=== PATIENT | female | born 1965 | race Caucasian/White ===

== ENCOUNTER 2022-07-03 13:04 | Emergency (ER) | payer OTHER, SELFPAY ==
[2022-07-03 13:16] VITALS: BP 172/108; PULSE 70; RESP 16; TEMP 36.6; O2SAT 100
--- NOTE | 2022-07-03 13:32 | ECG_ITS ---
Measurements Intervals [place] Rate: 62 P: 13 [place]: 270 QRS: 23 QRSD: 98 T: 29 QT: 434 QTc: 441 Interpretive Statements SINUS RHYTHM WITH FIRST DEGREE AV BLOCK CANNOT RULE OUT SEPTAL INFARCT, AGE INDETERMINATE ABNORMAL ECG NO PREVIOUS ECG AVAILABLE FOR COMPARISON Electronically Signed On 07-03-2022 14:25:31 CDT by Dhiraj Chan D.O.
--- NOTE | 2022-07-03 14:10 | ED.GENADULT ---
HPI - General Adult General Chief complaint: Shortness of Breath/Dyspnea Stated complaint: high blood pressure,shortness of breath,heart palp Time Seen by Provider: 07/03/22 14:10 Source: patient, RN notes reviewed and old records reviewed Mode of arrival: ambulatory Limitations: no limitations History of Present Illness HPI narrative: 57-year-old female presents to the [facility] with complaints of heart palpitations over the last several weeks. Started this morning with left-sided chest pain, shortness of breath as well as the pain radiating into her left side of her neck. chest pain started approximately 8:00 a.m. this morning as well as the radiation and shortness of breath. patient on arrival has blood pressure that is elevated. Patient reports that she called her primary care provider to try to get an appointment was told with her symptoms to go the ER. Patient arrives to the urgent care. Is asking for other ways to have a cardiac evaluation without going to the emergency room. Is willing to sign out against medical advice, does not want to go to the ER at this time Related Data Home Medications Medication Instructions Recorded Confirmed No Home Medications 07/03/22 07/03/22 Allergies Allergy/AdvReac Type Severity Reaction Status Date / Time No Known Allergies Allergy Verified 07/03/22 13:10 Review of Systems Review of Systems: All systems reviewed & are unremarkable except as noted in HPI and below Constitutional: Constitutional: Reports no additional constitutional complaints Eyes: Eyes: Reports no additional eye complaints ENT: Reports system reviewed and no additional complaints, except as documented Cardiovascular: Cardiovascular: Reports as per HPI, Reports chest pain, Reports irregular heart rhythm, Denies leg edema, Reports radiating jaw, neck or arm pain and Reports dyspnea Respiratory: Respiratory: Reports no additional respiratory complaints, Denies chest congestion, Denies cough and Denies dyspnea Gastrointestinal: Gastrointestinal: Reports no additional gastrointestinal complaints, Denies abdominal pain, Denies nausea and Denies vomiting Musculoskeletal: Musculoskeletal: Reports no additional musculoskeletal complaints Integumentary/Breasts: Skin/Breast: Reports system reviewed and no additional complaints, except as docu Neurologic: Reports system reviewed and no additional complaints, except as documented Psychiatric: Psychiatric: Reports no additional psychiatric complaints Allergic/Immunologic: Allergic/Immunologic: Reports no additional allergic/immunologic complaints [facility] Family History Family History Father Hypertension Heart disease Grandparent Heart disease Social History Social History Smoking status: Never smoker Alcohol intake: never Substance use: never Substance use type: does not use Comments At the time of my signature, I reviewed and agree with the nursing past medical, surgical, social, and family history. There is no relevant family history pertinent to the patient complaint. Exam Const: General: cooperative, healthy appearing, comfortable, no acute distress, well developed, alert and well nourished Nutritional Appearance: well nourished Orientation/consciousness: patient oriented x3 Limitations: no limitations HENMT: Head: normal to inspection Ears: hearing grossly normal bilaterally and external ears normal Face/Nose/Sinus: Normal external nose present, Normal nares present, Normal nasal mucous membranes and turbinates present and normal facial exam Face and sinus: normal facial exam Eyes: General: appearance normal, both eyes and all related structures Alignment and Position: alignment normal Periorbital: periorbital findings normal Pupils: Equal, round and reactive pupils present EOM: EOMs intact bilaterally Neck: Neck: normal vi
== END 2022-07-03 14:19 | disposition left against medical advice (07) ==
PROVIDERS: Emergency Provider Nurse Practitioner
DX: R07.9 Chest pain, unspecified (principal); R00.2 Palpitations; R03.0 Elevated blood-pressure reading, without diagnosis of hypertension
CPT/HCPCS: 93005; 99213; G0463

== ENCOUNTER 2022-07-03 14:55 | Emergency (ER) | payer OTHER, SELFPAY ==
[2022-07-03] VITALS (10 sets, daily range): BP systolic 154–190; BP diastolic 87–120; PULSE 66–80; RESP 13–20; TEMP 36.4; O2SAT 97–100
--- NOTE | ~2022-07-03 | CT_ITS ---
EXAMINATION: CT brain wo con DATE: 07/03/2022 20:07 INDICATION: elevated BP, headache . TECHNIQUE: Computed tomography (CT) of the head was performed without intravenous contrast. The mA wa s adjusted according to patient size. Iterative reconstruction technique was employed. The dose-lengt h product was 605.33 mGy-cm. COMPARISON: None. FINDINGS: No acute intracranial hemorrhage or extra-axial fluid collection. No hydrocephalus, mass, or herniation. No acute ischemic infarct. Unremarkable dural venous sinus attenuation. No acute osseous abnormality. The aerated spaces are clear. IMPRESSION: No acute intracranial process. Reviewed, dictated and finalized at location K.
--- NOTE | ~2022-07-03 | XR_ITS ---
EXAMINATION: XR chest 2V 07/03/2022 15:23 INDICATION: Chest pain PROCEDURE: 2 view chest COMPARISON: No prior studies for comparison. FINDINGS: The lungs are clear. The cardiomediastinal silhouette is within normal limits. There are no pleural effusions. There is no pneumothorax suspected. IMPRESSION: 1: NO ACUTE CARDIOPULMONARY DISEASE. Reviewed, dictated and finalized at location L.
--- NOTE | ~2022-07-03 | CT_ITS ---
EXAMINATION: CTA chest PE protocol DATE: 07/03/2022 23:57 INDICATION: Chest pain. TECHNIQUE: Computed tomography angiography (CTA) of the chest was performed with 100 mL Omnipaque-350 intravenous contrast timed to evaluate the pulmonary arteries. Coronal maximum intensity projection 3D-reconstructions were created by the technologist. Automated exposure control and iterative reconst ruction technique were employed. The dose-length product was 331.96 mGy-cm. COMPARISON: None. FINDINGS: The lungs demonstrate mild atelectasis. No pleural effusion. There are nodules in the thyro id measuring up to 11 mm, likely not clinically significant. The heart size is normal. No pericardial effusion. There is no pulmonary embolus. There are changes of cholecystectomy. There is severe thora cic spondylosis. IMPRESSION: 1. No pulmonary embolus. Reviewed, dictated and finalized at location A. IMPRESSION: 1. No pulmonary embolus.
--- NOTE | 2022-07-03 14:57 | ECG_ITS ---
Measurements Intervals [place] Rate: 66 P: 19 [place]: 228 QRS: 22 QRSD: 93 T: 42 QT: 419 QTc: 439 Interpretive Statements SINUS RHYTHM WITH FIRST DEGREE AV BLOCK CANNOT RULE OUT SEPTAL INFARCT, AGE INDETERMINATE BASELINE ARTIFACT- I, III, AVL ABNORMAL ECG COMPARED TO ECG 07/03/2022 13:27:34 NO SIGNIFICANT CHANGES Electronically Signed On 07-03-2022 15:25:12 CDT by Dhiraj Chan D.O.
[2022-07-03 15:19] LABS: Basophils Absolute Auto 0.1 K/mm3 (0.0-0.1); Basophils Percent Auto 1.8 % (0.2-1.2); Eosinophils Absolute Auto 0.3 K/mm3 (0-0.3); Eosinophils Percent Auto 5.5 % (0-4.4); Hematocrit 42.2 % (37.0-47.0); Hemoglobin 13.8 g/dL (12.0-15.0); Immature Granulocyte Absolute 0.01 K/mm3 (0.00-0.031); Immature Granulocyte Percent A 0.2 % (0-0.5); Lymphocytes Absolute Auto 1.95 K/mm3 (0.9-3.2); Lymphocytes Percent Auto 38.1 % (18.3-44.2); Mean Corpuscular HGB Conc 32.7 g/dl (32-36); Mean Corpuscular Hemoglobin 30.1 pg (26-34); Mean Corpuscular Volume 92.1 fl (80-100); Mean Platelet Volume 8.9 fl (7.4-10.4); Monocytes Absolute Auto 0.4 K/mm3 (0.1-0.6); Monocytes Percent Auto 8.6 % (2.6-8.5); Neutrophils Absolute Auto 2.4 K/mm3 (1.3-6.7); Neutrophils Percent Auto 45.8 % (45.5-73.1); Platelet Count Result 250 k/mm3 (150-375); Red Blood Count 4.58 M/mm3 (4.2-5.4); Red Cell Distribution Width 13.6 % (11.5-14.5); White Blood Count 5.1 K/mm3 (4.5-10.0)
[2022-07-03 15:29] LABS: Alanine Aminotransferase 32 U/L (6-35); Albumin Level 4.5 g/dL (3.5-5.1); Alkaline Phosphatase 102 U/L (38-126); Anion Gap 7 mmol/L (8-16); Aspartate Amino Transferase 32 U/L (14-36); Bilirubin,Total 0.7 mg/dL (0.2-1.3); Blood Urea Nitrogen 19 mg/dL (7-17); Calcium 9.1 mg/dL (8.4-10.2); Carbon Dioxide 31 mmol/L (22-30); Chloride 101 mmol/L (98-107); Estimated Glomerular Filt Rate > 60; Glucose 114 mg/dL (65-110); INR 0.9; Lipase 110 U/L (23-300); Potassium 3.8 mmol/L (3.4-5.0); Prothrombin Time 12.1 Seconds (11.1-14.7); Sodium 139 mmol/L (137-145)
[2022-07-03 15:30] LABS: Partial Thromboplastin Time 26.7 SECONDS (22.3-36.8)
[2022-07-03 15:40] LABS: Troponin I < 0.012 ng/mL (0.000-0.034)
--- NOTE | 2022-07-03 19:10 | ED.CHESTPAIN ---
HPI - Chest Pain General Chief Complaint: Chest Pain Stated Complaint: chest pressure Time Seen by Provider: 07/03/22 19:06 Source: patient Mode of arrival: ambulatory Limitations: no limitations History of Present Illness HPI narrative: Patient is a 57-year-old female with a history of remote hypertension presenting to the emergency department for evaluation of elevated blood pressure, intermittent left-sided chest pain, headache. Patient reports that she has intermittently been experiencing a fluttering sensation in her chest with palpitations over the past several weeks. Today, patient experiences sensation that occurred with left-sided chest pain that has been constant over the past 3 hours. Described as aching pressure without radiation to the back, jaw, neck, shoulder. No ripping or tearing sensation to the flank. No syncope. No leg numbness or pain. Patient reports she decided take her blood pressure at home with systolics greater than 200. Previously, patient had been on 20 mg of lisinopril daily, stated that that did not really improve her blood pressure measurement. Her primary care physician decided to discontinue the medication, patient underwent diet and lifestyle modification and had an intentional 50 pound weight loss with improvement in her blood pressure numbers. Since that time, patient has not been on any blood pressure medications. She denies history of hyperlipidemia. She has a remote smoking history for short period of time, 5-pack-year history with cessation greater than 25 years ago. Patient reports family history of coronary artery disease. No history of stress testing or stenting in self. Patient denies any current palpitations. No history of diabetes. Patient reports mild headache described as a pressure-like sensation across her forehead. No thunderclap sensation. No vision changes, nausea or vomiting. No focal weakness or numbness. Patient has been ambulatory without difficulty. Pt also reports significant anxiety, tearful throughout examination. Denies SI or HI. Related Data Allergies Allergy/AdvReac Type Severity Reaction Status Date / Time No Known Allergies Allergy Verified 07/03/22 13:10 Review of Systems Review of Systems: CONSTITUTIONAL: Denies fever, chills, or sweats. EYES: Denies visual changes, redness, or discharge. ENT: Denies rhinorrhea, congestion, sore throat, or otalgia. CARDIOVASCULAR: Reports chest pain, intermittent palpitations but denies these currently, denies lower extremity edema RESPIRATORY: Denies cough or dyspnea. GASTROINTESTINAL: Denies abdominal pain, nausea, vomiting, or diarrhea. GENITOURINARY: Denies dysuria or hematuria. SKIN: Denies rash or itching. MUSCULOSKELETAL: Denies back pain, joint pain, or myalgia. NEUROLOGIC: Reports headache without focal numbness, or weakness. PSYCHIATRIC: Patient reports significant anxiety, stressors, quite tearful throughout examination [facility] Family History Family History Father Hypertension Heart disease Grandparent Heart disease Social History Social History Smoking status: Never smoker Alcohol intake: never Substance use: never Substance use type: does not use Exam Narrative: GENERAL: Awake, alert, conversant, tearful HEAD: Normocephalic, atraumatic. EYES: PERRLA and EOMI. ENT: Nares clear, no rhinorrhea or epistaxis. Mucous membranes moist. NECK: Supple. CHEST: No respiratory distress, breathing even and non labored HEART: Regular rate, sinus rhythm ABDOMEN:Non distended, non tender EXTREMITIES: Normal range of motion. No edema. SKIN: Warm, dry, no rash. NEURO:No focal deficits. Alert and oriented x3 Course Vital Signs Vital signs: Vital Signs Temperature 36.4 C 07/03/22 15:25 Pulse Rate 80 07/03/22 15:25 Respiratory Rate 16 07/03/22 15:25 Blood Pressure 184/
[2022-07-03 19:43] LABS: Troponin I < 0.012 ng/mL (0.000-0.034)
[2022-07-03] MEDS: ASPIRIN 81 MG CHEWABLE TABLET 324 MG PO (20:24)
--- NOTE | 2022-07-03 20:28 | PC.NURSE ---
Patient states she does not want an IV and would like blood pressure medication by PO. Notified Dr. Mccray.
[2022-07-03] MEDS: hydrALAZINE 10 MG TABLET PO (21:08)
[2022-07-03 21:12] LABS: Troponin I < 0.012 ng/mL (0.000-0.034)
--- NOTE | 2022-07-03 23:07 | PC.NURSE ---
Rn attempted for IV, RN unsuccessful. pt. requesting to speak w/ doctor and refusing IV attempt.
[2022-07-04 00:35] VITALS: BP 167/106; PULSE 67; RESP 15; TEMP 36.6; O2SAT 96
== END 2022-07-04 00:37 | disposition home or self-care (01) ==
PROVIDERS: Emergency Medicine; Emergency Provider Emergency Medicine
DX: R07.89 Other chest pain (principal); I16.9 Hypertensive crisis, unspecified; Z87.891 Personal history of nicotine dependence; I44.0 Atrioventricular block, first degree; R94.31 Abnormal electrocardiogram [ECG] [EKG]
CPT/HCPCS: 36415; 70450; 71046; 71275; 80053; 83690; 84443; 84484; 85025; 85380; 85610; 85730; 93005; 99284; A9270; Q9967

== ENCOUNTER 2022-07-31 18:04 | Emergency (ER) | payer OTHER, SELFPAY ==
[2022-07-31 18:09] VITALS: BP 185/112; PULSE 72; RESP 16; TEMP 36.2; O2SAT 100
--- NOTE | 2022-07-31 18:27 | ED.FEMALEGU ---
HPI - Female Genitourinary General Chief complaint: Urogenital-Female Stated complaint: UTI SYMPTOMS Time Seen by Provider: 07/31/22 18:27 Source: patient, RN notes reviewed and old records reviewed Mode of arrival: ambulatory Limitations: no limitations History of Present Illness HPI Narrative: 57-year-old female presents to the [facility] with complaints of having a UTI. Patient reports frequency, urgency and pain with urination. States this started this afternoon. recently treated with Macrobid for UTI States that did improve but not fully better. States that she called the clinic she was seen at was told it was E coli in the Macrobid should have cleared it. Denies abdominal pain but reports suprapubic pressure, no CVA tenderness, nausea, vomiting or diarrhea. Denies fever Onset (ago): hour(s) (4) Related Data Allergies Allergy/AdvReac Type Severity Reaction Status Date / Time No Known Allergies Allergy Verified 07/31/22 18:20 Review of Systems Review of Systems: All systems reviewed & are unremarkable except as noted in HPI and below Constitutional: Constitutional: Reports no additional constitutional complaints Eyes: Eyes: Reports no additional eye complaints ENT: Reports system reviewed and no additional complaints, except as documented Cardiovascular: Cardiovascular: Reports no additional cardiovascular complaints, Denies chest pain and Denies dyspnea Respiratory: Respiratory: Reports no additional respiratory complaints, Denies chest congestion, Denies cough and Denies dyspnea Gastrointestinal: Gastrointestinal: Reports no additional gastrointestinal complaints, Denies abdominal pain, Denies nausea and Denies vomiting Genitourinary: Genitourinary: Reports as per HPI Musculoskeletal: Musculoskeletal: Reports no additional musculoskeletal complaints Integumentary/Breasts: Skin/Breast: Reports system reviewed and no additional complaints, except as docu Neurologic: Reports system reviewed and no additional complaints, except as documented Psychiatric: Psychiatric: Reports no additional psychiatric complaints Allergic/Immunologic: Allergic/Immunologic: Reports no additional allergic/immunologic complaints [facility] Family History Family History Father Hypertension Heart disease Grandparent Heart disease Social History Social History Smoking status: Never smoker Alcohol intake: never Substance use: never Substance use type: does not use Comments At the time of my signature, I reviewed and agree with the nursing past medical, surgical, social, and family history. There is no relevant family history pertinent to the patient complaint. Exam Const: General: cooperative, healthy appearing, comfortable, no acute distress, well developed, alert and well nourished Nutritional Appearance: well nourished Orientation/consciousness: patient oriented x3 Limitations: no limitations HENMT: Head: normal to inspection Ears: hearing grossly normal bilaterally and external ears normal Face/Nose/Sinus: Normal external nose present, Normal nares present, Normal nasal mucous membranes and turbinates present and normal facial exam Face and sinus: normal facial exam Eyes: General: appearance normal, both eyes and all related structures Alignment and Position: alignment normal Periorbital: periorbital findings normal Pupils: Equal, round and reactive pupils present EOM: EOMs intact bilaterally Neck: Neck: normal visual inspection, full ROM, no lymphadenopathy and no meningeal signs Chest: Chest palpation & inspection: normal inspection of the chest Resp: Effort & Inspection: normal respiratory effort and able to speak in complete sentences Auscultation: clear to auscultation bilaterally, no crackles, no rales, no rhonchi and no wheezes Cardio: Rate: regular rate Rhythm: regular rhythm GI: GI Pal
== END 2022-07-31 18:45 | disposition home or self-care (01) ==
PROVIDERS: Emergency Provider Nurse Practitioner
DX: N30.01 Acute cystitis with hematuria (principal)
CPT/HCPCS: 81003; 87086; 87088; 99213; G0463